=== PATIENT | female | born 1975 | race Caucasian/White ===

== ENCOUNTER 2021-10-27 18:59 | Emergency (ER) | payer SELFPAY ==
[~2021-10-27] VITALS: Ht 152.4 cm; Wt 99.0 kg
[2021-10-27] MEDS ORDERED: BUSPIRONE HCL30 MG PO ×2 (19:33→23:59)
[2021-10-27] MEDS ORDERED: ADDERALL 20 MG20 MG PO (19:34)
[2021-10-27] MEDS ORDERED: HYDROCODON-ACE1 EA10 PO (23:59)
[2021-10-27] MEDS ORDERED: FLUCONAZOLE150 MG PO (23:59)
[2021-10-27] MEDS ORDERED: METRONIDAZOLE500 MG PO (23:59)
[2021-10-27] MEDS ORDERED: DOXYCYCLINE HY100 MG PO (23:59)
== END 2021-10-28 00:32 | disposition home or self-care (01) ==
LOC: ED 18:59
DX: N73.0 Acute parametritis and pelvic cellulitis (principal); Z88.0 Allergy status to penicillin; Z91.018 Allergy to other foods; Z79.899 Other long term (current) drug therapy
CPT/HCPCS: 74177; 80053; 81001; 83690; 84703; 85025; 87210; 99284-25; J0696

== ENCOUNTER 2021-10-31 18:04 | Emergency (ER) | payer SELFPAY ==
[~2021-10-31] VITALS: Ht 152.4 cm; Wt 98.9 kg
[~2021-10-31 18:04] MED LIST: ADDERALL 20 MG20 MG PO; BUSPIRONE HCL30 MG PO; DOXYCYCLINE HY100 MG PO; FLUCONAZOLE150 MG PO; HYDROCODON-ACE1 EA10 PO; METRONIDAZOLE500 MG PO
--- OUTSIDE RECORDS SUMMARY | 2021-10-31 18:08 | XMS ---
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 - 2 Visits in 30 Days - Group Notification CARE PROVIDERS There are no care providers on record at this time. Alexis has no Care Guidelines for this patient. Care History Medical/Surgical 10/28/2021 [facility] - CHW RECEIVED CASE MANAGEMENT CONSULT- HELP PATIENT WITH FINDING A PRIMARY CARE PHYSICIAN. - CHW CALLED PATIENT [phone] LEFT A VOICEMAIL - PATIENT DOES NOT CURRENTLY HAVE HEALTH INSURANCE. 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 - NO PCP LETTER SENT WITH CLINICS LISTED TO ESTABLISH WITH. E.Susan. VISIT COUNT (12 MO.) 2 [facility] TOTAL 2 NOTE: Visits indicate total known visits. 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
--- NOTE | 2021-11-02 16:17 | EKG ---
[facility] [address] [place], [place] [address] Signed Normal sinus rhythm Normal ECG No previous ECGs available Confirmed by CRISTÓBAL SHANNON MD ([id number]) on 11/02/2021 4:17:26 PM Electronically Signed By: CRISTÓBAL SHANNON MD 11/02/21 1617 PATIENT NAME: MIKE JOSEPH Electrocardiogram DATE OF : 77 PHYSICIAN: CRISTÓBAL SHANNON MD REPORT #: [id number] REPORT IS CONFIDENTIAL AND NOT TO BE RELEASED WITHOUT AUTHORIZATION
== END 2021-10-31 18:37 | disposition left against medical advice (07) ==
LOC: ED 18:04
DX: Z53.21 Procedure and treatment not carried out due to patient leaving prior to being seen by health care provider (principal)
CPT/HCPCS: 93005; 93010

== ENCOUNTER 2023-01-13 20:19 | Emergency (ER) | payer BC ==
[~2023-01-13] VITALS: Ht 152.4 cm; Wt 102.1 kg
[~2023-01-13 20:19] MED LIST changes: +CYCLOBENZAPRINE10 MG PO; +ONDANSETRON ODT8 MG PO
--- OUTSIDE RECORDS SUMMARY | 2023-01-13 20:27 | XMS ---
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 10/31/2021 18:05 - Other Details: PATIENT LWBS Elopement at [facility] 10/31/2021 18:05 - Other Details: PATIENT LWBS CRITERIA MET - Group Notification CARE PROVIDERS There are no care providers on record at this time. Alexis has no Care Guidelines for this patient. Care History Medical/Surgical 10/28/2021 [facility] - CHW RECEIVED CASE MANAGEMENT CONSULT- HELP PATIENT WITH FINDING A PRIMARY CARE PHYSICIAN. - CHW CALLED PATIENT [phone] LEFT A VOICEMAIL - PATIENT DOES NOT CURRENTLY HAVE HEALTH INSURANCE. DOES SHOW [employer] EMPLOYMENT. - NO PCP LETTER SENT WITH CLINICS LISTED TO ESTABLISH WITH. E.D. VISIT COUNT (12 MO.) 2 [facility]. TOTAL 2 NOTE: Visits indicate total known visits. ED/UCC VISIT TRACKING (12 MO.) 01/13/2023 20:20 [facility] [place] TYPE: Emergency COMPLAINT: - SOB,CLAMMY 08/15/2022 22:36 [facility] [place] TYPE: Emergency COMPLAINT: - N/V AND FEVER DIZZY DIAGNOSES: - Nausea with vomiting, unspecified - Contact with and (suspected) exposure to COVID-19 - Allergy to other foods - Allergy status to penicillin - Viral intestinal infection, unspecified INPATIENT VISIT TRACKING (12 MO.) No inpatient visits to display in this time frame [id number]
--- NOTE | 2023-01-15 13:29 | EKG ---
[facility] [address] [place] [address] Signed Sinus tachycardia Otherwise normal ECG When compared with ECG of 31-OCT-2021 18:16, Non-specific change in ST segment in Inferior leads ST now depressed in Lateral leads Nonspecific T wave abnormality now evident in Inferior leads Confirmed by CRISTÓBAL SHANNON MD ([id number]) on 01/15/2023 1:29:08 PM Electronically Signed By: CRISTÓBAL SHANNON MD 01/15/23 1329 PATIENT NAME: AUSTIN JOSEPHNY LUNAVIKA Electrocardiogram DATE OF : 77 PHYSICIAN: CRISTÓBAL SHANNON MD REPORT #: [id number] REPORT IS CONFIDENTIAL AND NOT TO BE RELEASED WITHOUT AUTHORIZATION
== END 2023-01-13 23:20 | disposition home or self-care (01) ==
LOC: ED 20:19
DX: L02.212 Cutaneous abscess of back [any part, except buttock and flank] (principal); Z88.2 Allergy status to sulfonamides; Z91.018 Allergy to other foods; Z88.0 Allergy status to penicillin; Z79.899 Other long term (current) drug therapy; Z20.822 Contact with and (suspected) exposure to COVID-19
CPT/HCPCS: 36415; 51701; 71045; 80053; 81001; 83605; 85025; 85610; 85730; 87502; 93005; 93010; 99283-25; C9803; U0003

== ENCOUNTER 2023-04-29 01:39 | Emergency (ER) | payer BC ==
[~2023-04-29] VITALS: Ht 152.4 cm; Wt 106.6 kg
--- OUTSIDE RECORDS SUMMARY | 2023-04-29 01:46 | XMS ---
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 Care History Medical/Surgical 10/28/2021 [facility] - [facility] RECEIVED CASE MANAGEMENT CONSULT- HELP PATIENT WITH FINDING A PRIMARY CARE PHYSICIAN. - CHW CALLED PATIENT [phone] LEFT A VOICEMAIL - PATIENT DOES NOT CURRENTLY HAVE HEALTH INSURANCE. 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 - NO PCP LETTER SENT WITH CLINICS LISTED TO ESTABLISH WITH. E.D. VISIT COUNT (12 MO.) 3 [facility] TOTAL 3 NOTE: Visits indicate total known visits. ED/UCC VISIT TRACKING (12 MO.) 04/29/2023 01:[address] [facility] [place] TYPE: Emergency COMPLAINT: - LT KNEE PAIN 01/13/2023 20:20 [facility] [place] TYPE: Emergency COMPLAINT: - SOB,CLAMMY DIAGNOSES: - Allergy status to penicillin - Allergy status to sulfonamides - Allergy to other foods - Contact with and (suspected) exposure to COVID-19 - Cutaneous abscess of back [any part, except buttock] - Other salvage determiner (current) drug therapy - Shortness of breath 08/15/2022 22:[address] [facility] [place] TYPE: Emergency COMPLAINT: - N/V AND FEVER DIZZY DIAGNOSES: - Allergy status to penicillin - Allergy to other foods - Contact with and (suspected) exposure to COVID-19 - Nausea with vomiting, unspecified - Viral intestinal infection, unspecified INPATIENT VISIT TRACKING (12 MO.) No inpatient visits to display in this time frame [id number]
[2023-04-29] MEDS ORDERED: TRAZODONE HCL50 MG PO (01:56)
[2023-04-29] MEDS ORDERED: LOSARTAN-HCTZ1 EAC2 PO (01:56)
[2023-04-29 02:30] VITALS: BP 130/85
== END 2023-04-29 02:30 | disposition home or self-care (01) ==
LOC: ED 01:39
DX: S83.92XA Sprain of unspecified site of left knee, initial encounter (principal); X50.1XXA Overexertion from prolonged static or awkward postures, initial encounter; Z88.0 Allergy status to penicillin; Z88.2 Allergy status to sulfonamides; Z91.018 Allergy to other foods; Z79.899 Other long term (current) drug therapy
CPT/HCPCS: 73560; 99283-25

== ENCOUNTER 2024-03-09 15:33 | Emergency (ER) | payer OTHER ==
[~2024-03-09] VITALS: Ht 152.4 cm; Wt 114.7 kg
[~2024-03-09 15:33] MED LIST changes: +LOSARTAN-HCTZ1 EAC2 PO; +PREDNISONE20 MG PO; +TRAZODONE HCL50 MG PO
[2024-03-09 16:18] VITALS: BP 145/77
[2024-03-09] MEDS ORDERED: LACTULOSE 10 GM/15 ML ML PR ONE (16:30)
--- NOTE | 2024-03-10 05:12 | EKG ---
[facility] [address] [facility] [facility] [place] [address] Signed Normal sinus rhythm Normal ECG When compared with ECG of 27-FEB-2024 01:19, No significant change was found Confirmed by Forest Valdez ([id number]) on 03/10/2024 5:12:39 AM Electronically Signed By: FOREST VALDEZ MD 03/10/24 0512 PATIENT NAME: MIKE JOSEPH NYDIAAYESHA Electrocardiogram DATE OF : 77 PHYSICIAN: FOREST VALDEZ MD REPORT #: [id number] REPORT IS CONFIDENTIAL AND NOT TO BE RELEASED WITHOUT AUTHORIZATION
== END 2024-03-09 16:27 | disposition left against medical advice (07) ==
LOC: ED 15:33
DX: R06.02 Shortness of breath (principal); Z53.29 Procedure and treatment not carried out because of patient's decision for other reasons; R07.89 Other chest pain; R49.0 Dysphonia; I10 Essential (primary) hypertension; I25.2 Old myocardial infarction; F90.9 Attention-deficit hyperactivity disorder, unspecified type; F41.9 Anxiety disorder, unspecified; Z87.828 Personal history of other (healed) physical injury and trauma; Z88.0 Allergy status to penicillin; Z91.018 Allergy to other foods; Z88.2 Allergy status to sulfonamides; Z79.899 Other long term (current) drug therapy
CPT/HCPCS: 80053; 82803; 83880; 84484; 85025; 93005; 93010; 99285-25

== ENCOUNTER 2024-04-19 09:27 | Emergency (ER) | payer OTHER ==
[~2024-04-19] VITALS: Ht 152.4 cm; Wt 105.0 kg
[2024-04-19] MEDS ORDERED: EPINEPHRINE 2.25% 0.5 ML AMP ONE ×2 (09:33→13:09)
[2024-04-19] MEDS ORDERED: AMLODIPINE BESYL5 MG PO (09:39)
[2024-04-19] MEDS ORDERED: predniSONE 20 MG TAB PO ONE (10:00)
[2024-04-19] MEDS ORDERED: EPINEPHRINE 2.25% 0.5 ML AMP NEB ONE ×2 (10:00→19:45)
[2024-04-19] MEDS ORDERED: DEXAMETHASONE SOD PHOS 10 MG/ML VIAL IV ONE (13:15)
[2024-04-19] MEDS ORDERED: LORazepam 2 MG/ML VIAL IV PRN (13:15)
[2024-04-19 13:27] LABS: BASOPHILS 0.4 % (0-2); EOSINOPHILS 0.3 % (0-6); HEMATOCRIT 42.1 % (35.0-50.0); HEMOGLOBIN 13.6 g/dL (12.0-18.0); LYMPHOCYTES 17.3 % (24-44); MCH 27.4 (27-36); MCHC 32.2 g/dl (30-36); MONOCYTES 2.6 % (0-12); NEUTROPHILS 79.4 % (39-80); PLATELET COUNT 332 K/uL (140-440); RBC 4.95 M/ul (4.3-5.7); RDW 16.3 (10.5-15.0)
[2024-04-19] MEDS ORDERED: SODIUM CHLORIDE 0.9% 1,000 ML IV ONE (13:30)
[2024-04-19 13:42] LABS: ALBUMIN 3.4 g/dL (3.4-5.0); ALBUMIN/GLOBULIN RATIO 0.79 (1.1-2.4); ANION GAP 12.7 (7-21); BILIRUBIN, TOTAL 0.2 ng/dL (0.2-1.0); CALCIUM 8.9 mg/dL (8.5-10.1); CREATININE, SERUM 0.7 mg/dL (0.55-1.02); POTASSIUM 3.7 mmol/L (3.5-5.1); PROTEIN, TOTAL 7.7 g/dL (6.4-8.2)
[2024-04-19] MEDS ORDERED: CEFTRIAXONE/SODIUM CHLORIDE 2 GM/100 ML PIGGYBACK IV ONE (19:00)
[2024-04-19 21:18] LABS: BILIRUBIN, URINE NEGATIVE (negative); BLOOD/HGB, URINE TRACE-L (Negative); KETONE, URINE TRACE (Negative); LEUK ESTERASE, URINE NEGATIVE (negative); NITRITE, URINE NEGATIVE (negative)
[2024-04-19 21:23] LABS: EPITHELIAL CELLS, URINE SQUAMOUS 2+ /lpf (0-1+)
[2024-04-19 21:24] LABS: BACTERIA, URINE RARE /hpf (negative); CASTS, URINE NONE SEEN \\lpf; CRYSTALS, URINE NONE SEEN (0-1+); REFLEX CULTURE, URINE No (No); WHITE BLOOD CELLS, URINE 0-1 /HPF (0-5)
[2024-04-19 23:14] LABS: BASE EXCESS, BLOOD GAS -1.8 mmol/L (-2-2); HCO3, BLOOD GAS 21.5 mmol/L (22-26); PCO2, BLOOD GAS 31.2 mmHg (35-45); PH, BLOOD GAS 7.45 (7.35-7.45); PO2, BLOOD GAS 65 mmHg (80-100); TOTAL CO2, BLOOD GAS 22.5
[2024-04-19 23:15] LABS: OXYGEN RECEIVED, BLOOD GAS ROOM AIR
[2024-04-19] MEDS ORDERED: LACTATED RINGER'S 1,000 ML IV ONE (23:45)
[2024-04-20 01:33] VITALS: BP 128/78
[2024-04-20] MEDS ORDERED: EPINEPHRINE 2.25% 0.5 ML AMP NEB ONE (02:00)
== END 2024-04-20 02:12 | disposition short-term general hospital (02) ==
LOC: ED 09:27
PROVIDERS: Emergency Medicine; Internal Medicine
DX: R06.1 Stridor (principal); J45.909 Unspecified asthma, uncomplicated; Z88.0 Allergy status to penicillin; Z88.2 Allergy status to sulfonamides; Z91.018 Allergy to other foods; Z79.899 Other long term (current) drug therapy
CPT/HCPCS: 36415; 36600; 70360; 70491; 71045; 80053; 81001; 82803; 85025; 87070; 94640; 96366; 96367; 96375; 96376; 99285-25; A9270; J0696; J1100; J2060; J7030; J7121; J7512; Q9967

== ENCOUNTER 2024-06-07 21:33 | Emergency (ER) | payer OTHER ==
[~2024-06-07] VITALS: Ht 152.4 cm; Wt 95.0 kg
[~2024-06-07 21:33] MED LIST changes: +AMLODIPINE BESYL5 MG PO
[2024-06-07] MEDS ORDERED: VENTOLIN HFA18 GM INH (21:42)
[2024-06-07] MEDS ORDERED: VITAMIN D21250 MCG PO (21:43)
[2024-06-07] MEDS ORDERED: HYDROXYZINE HCL25 MG PO (21:43)
[2024-06-07] MEDS ORDERED: TIOTROPIUM BRO18 MCG INH (21:43)
[2024-06-07] MEDS ORDERED: methylPREDNISolone SOD SUCC 125 MG/2 ML VIAL IV ONE (21:45)
[2024-06-07] MEDS ORDERED: ALBUTEROL/IPRATROPIUM 3 ML NEB INH ONE (21:45)
[2024-06-07 21:48] LABS: PH, VENOUS 7.448 (7.31-7.41)
[2024-06-07 21:50] LABS: BASOPHILS 0.7 % (0-2); EOSINOPHILS 1.4 % (0-6); HEMATOCRIT 41.2 % (35.0-50.0); HEMOGLOBIN 13.7 g/dL (12.0-18.0); MCH 28.2 (27-36); MCHC 33.2 g/dl (30-36); NEUTROPHILS 58.9 % (39-80); PLATELET COUNT 337 K/uL (140-440); RBC 4.85 M/ul (4.3-5.7); RDW 15.8 (10.5-15.0)
[2024-06-07 22:14] LABS: ALBUMIN 3.3 g/dL (3.4-5.0); ALBUMIN/GLOBULIN RATIO 0.85 (1.1-2.4); BILIRUBIN, TOTAL 0.2 ng/dL (0.2-1.0); BUN/CREATININE RATIO 20.83 (6.0-28.6); CALCIUM 9.3 mg/dL (8.5-10.1); CREATININE, SERUM 0.72 mg/dL (0.55-1.02); PROTEIN, TOTAL 7.2 g/dL (6.4-8.2)
[2024-06-07 22:44] LABS: INFLUENZA B NAA NEGATIVE (NEGATIVE); RESPIRATORY SYNCYTIAL VIR NAA NEGATIVE (NEGATIVE)
[2024-06-07] MEDS ORDERED: METOPROLOL TARTRATE 5 MG/5 ML VIAL IV ONE (22:45)
[2024-06-07] MEDS ORDERED: ENALAPRILAT DIHYDRATE 1.25 MG/ML VIAL IV ONE (23:15)
[2024-06-08] MEDS ORDERED: methylPREDNISolone 4 MG HOME.PACK PO ONE (00:30)
[2024-06-08] MEDS ORDERED: AZITHROMYCIN 250 MG HOME.PACK PO ONE (00:30)
[2024-06-08] MEDS ORDERED: LORazepam 1 MG HOME.PACK PO ONE (00:30)
[2024-06-08 00:45] VITALS: BP 142/100
--- NOTE | 2024-06-08 19:31 | EKG ---
[facility] [address] [facility] [place] [address] Signed Sinus tachycardia Cannot rule out Inferior infarct , age undetermined Cannot rule out Anterior infarct , age undetermined Abnormal ECG When compared with ECG of 09-MAR-2024 15:59, Minimal criteria for Anterior infarct are now present No significant change was found Confirmed by ELICEO ROBERTS MD ([id number]) on 06/08/2024 7:31:24 PM Electronically Signed By: ELICEO ROBERTS 06/08/24 193 PATIENT NAME: MIKE JOSEPH Electrocardiogram DATE OF : [birth year] PHYSICIAN: ELICEO ROBERTS REPORT #: [id number] REPORT IS CONFIDENTIAL AND NOT TO BE RELEASED WITHOUT AUTHORIZATION
== END 2024-06-08 00:45 | disposition home or self-care (01) ==
LOC: ED 21:33
PROVIDERS: Family Medicine
DX: J38.7 Other diseases of larynx (principal); Z79.899 Other long term (current) drug therapy; Z88.2 Allergy status to sulfonamides; Z91.018 Allergy to other foods; Z88.0 Allergy status to penicillin
CPT/HCPCS: 36415; 70491; 71250; 80053; 82803; 83880; 84484; 85025; 85379; 87502; 93005; 93010; 94640; 96375; 99285-25; J2919; Q9967; U0002

== ENCOUNTER 2024-12-26 11:26 | Emergency (ER) | payer OTHER ==
[~2024-12-26] VITALS: Ht 152.4 cm; Wt 96.2 kg
[~2024-12-26 11:26] MED LIST changes: +HYDROXYZINE HCL25 MG PO; +TIOTROPIUM BRO18 MCG INH; +VENTOLIN HFA18 GM INH; +VITAMIN D21250 MCG PO
[2024-12-26 12:06] LABS: BASOPHILS 1.4 % (0-2); EOSINOPHILS 1.4 % (0-6); HEMATOCRIT 45.4 % (35.0-50.0); HEMOGLOBIN 14.8 g/dL (12.0-18.0); MCH 27.6 (27-36); MCHC 32.7 g/dl (30-36); MCV 84.3 fl (81-99); MONOCYTES 7.5 % (0-12); NEUTROPHILS 60.7 % (39-80); PLATELET COUNT 304 K/uL (140-440); RBC 5.38 M/ul (4.3-5.7); RDW 16.2 (10.5-15.0)
[2024-12-26 12:26] LABS: ALBUMIN 3.4 g/dL (3.4-5.0); ALBUMIN/GLOBULIN RATIO 0.85 (1.1-2.4); ANION GAP 13.4 (7-21); BILIRUBIN, TOTAL 0.3 ng/dL (0.2-1.0); BUN/CREATININE RATIO 15.71 (6.0-28.6); CREATININE, SERUM 0.7 mg/dL (0.55-1.02); POTASSIUM 3.4 mmol/L (3.5-5.1); PROTEIN, TOTAL 7.4 g/dL (6.4-8.2)
[2024-12-26 13:11] VITALS: BP 165/108
--- NOTE | 2024-12-28 17:07 | EKG ---
[facility] [address] [facility] [facility] [place] [address] Signed Sinus tachycardia Possible Anterior infarct (cited on or before 07-JUN-2024) Abnormal ECG When compared with ECG of 07-JUN-2024 21:55, Minimal criteria for Inferior infarct are no longer present Confirmed by Nato Ruffin DO ([id number]) on 12/28/2024 5:07:02 PM Electronically Signed By: NATO RUFFIN DO 12/28/24 1707 PATIENT NAME: AUSTIN JOSEPHNY STAFFORDAYESHA Electrocardiogram DATE OF : [birth year] PHYSICIAN: NATO RUFFIN DO REPORT #: [id number] REPORT IS CONFIDENTIAL AND NOT TO BE RELEASED WITHOUT AUTHORIZATION
--- NOTE | 2024-12-31 19:31 | EKG ---
[facility] [address] [facility] [place], [place] [address] Signed Sinus tachycardia Cannot rule out Anterior infarct (cited on or before 07-JUN-2024) Abnormal ECG When compared with ECG of 26-DEC-2024 11:44, No significant change was found Confirmed by Branden Pavon MD ([id number]) on 12/31/2024 7:31:37 PM Electronically Signed By: BRANDEN PAVON MD 12/31/241930 PATIENT NAME: AUSTIN JOSEPHNY STAFFORDAYESHA Electrocardiogram DATE OF : [birth year] PHYSICIAN: BRANDEN PAVON MD REPORT #: [id number] REPORT IS CONFIDENTIAL AND NOT TO BE RELEASED WITHOUT AUTHORIZATION
== END 2024-12-26 13:12 | disposition home or self-care (01) ==
LOC: ED 11:26
PROVIDERS: Internal Medicine
DX: R03.0 Elevated blood-pressure reading, without diagnosis of hypertension (principal); R00.0 Tachycardia, unspecified; I25.10 Atherosclerotic heart disease of native coronary artery without angina pectoris; I25.2 Old myocardial infarction; Z88.0 Allergy status to penicillin; Z88.2 Allergy status to sulfonamides; Z91.018 Allergy to other foods; Z79.899 Other long term (current) drug therapy
CPT/HCPCS: 36415; 80053; 83735; 84484; 85025; 93005; 93010; 99285

== ENCOUNTER 2024-12-30 19:25 | Emergency (ER) | payer OTHER ==
[~2024-12-30] VITALS: Ht 152.4 cm; Wt 96.2 kg
[2024-12-30 20:09] LABS: BASOPHILS 0.7 % (0-2); EOSINOPHILS 1.7 % (0-6); HEMATOCRIT 46.8 % (35.0-50.0); HEMOGLOBIN 15.6 g/dL (12.0-18.0); LYMPHOCYTES 24.3 % (24-44); MCH 28.1 (27-36); MCHC 33.3 g/dl (30-36); MCV 84.4 fl (81-99); MONOCYTES 5.5 % (0-12); NEUTROPHILS 67.8 % (39-80); PLATELET COUNT 311 K/uL (140-440); RBC 5.54 M/ul (4.3-5.7)
[2024-12-30 20:20] LABS: INR 0.95 (0.80-1.30); PROTIME 12.6 Sec (11.2-14.2)
[2024-12-30 20:22] LABS: PARTIAL THROMBOPLASTIN TIME 29.2 Sec (22.9-41.3)
[2024-12-30 20:32] LABS: ALBUMIN 3.2 g/dL (3.4-5.0); ALBUMIN/GLOBULIN RATIO 0.76 (1.1-2.4); ANION GAP 15.5 (7-21); BILIRUBIN, TOTAL 0.4 mg/dL (0.2-1.0); BUN/CREATININE RATIO 17.94 (6.0-28.6); CALCIUM 9.7 mg/dL (8.5-10.1); CREATININE, SERUM 0.78 mg/dL (0.55-1.02); POTASSIUM 4.5 mmol/L (3.5-5.1); PROTEIN, TOTAL 7.4 g/dL (6.4-8.2)
[2024-12-30 22:35] VITALS: BP 149/88
== END 2024-12-30 22:37 | disposition home or self-care (01) ==
LOC: ED 19:25
PROVIDERS: Family Medicine
DX: R07.89 Other chest pain (principal); Z88.0 Allergy status to penicillin; Z88.2 Allergy status to sulfonamides; Z91.018 Allergy to other foods; Z79.899 Other long term (current) drug therapy
CPT/HCPCS: 36415; 71045; 80053; 83735; 83880; 84484; 85025; 85379; 85610; 85730; 93005; 93010; 99285-25

== ENCOUNTER 2025-03-19 21:37 | Emergency (ER) | payer OTHER ==
[~2025-03-19] VITALS: Ht 152.4 cm; Wt 89.7 kg
[2025-03-19] MEDS ORDERED: PERCOCET 5-3251 EACH PO (22:45)
[2025-03-19] MEDS ORDERED: OXYCODONE/APAP 5/325 TAB PO ONE (22:45)
[2025-03-19 23:22] VITALS: BP 163/94
== END 2025-03-19 23:24 | disposition home or self-care (01) ==
LOC: ED 21:37
DX: S80.02XA Contusion of left knee, initial encounter (principal); Z88.1 Allergy status to other antibiotic agents; Z88.2 Allergy status to sulfonamides; Z79.899 Other long term (current) drug therapy; W01.0XXA Fall on same level from slipping, tripping and stumbling without subsequent striking against object, initial encounter
CPT/HCPCS: 73560; 99283

== ENCOUNTER 2025-05-23 04:20 | Emergency (ER) | payer OTHER ==
[~2025-05-23] VITALS: Ht 152.4 cm; Wt 91.2 kg
[~2025-05-23 04:20] MED LIST changes: +PERCOCET 5-3251 EACH PO
[2025-05-23] MEDS ORDERED: KETOROLAC TROMETHAMINE 30 MG/ML VIAL IV ONE (04:45)
[2025-05-23 04:48] LABS: BASOPHILS 0.5 % (0.1-1.2); EOSINOPHILS 2.2 % (0.7-5.8); LYMPHOCYTES 39.6 % (19.3-51.7); MCH 27.6 PG (25.6-32.2); MCHC 33.0 g/dL (32.2-35.5); MCV 83.7 fL (79.4-94.8); MONOCYTES 9.7 % (4.7-12.5); NEUTROPHILS 47.7 % (34.0-71.1); RBC 4.85 M/uL (3.93-5.22)
[2025-05-23 04:58] LABS: BLOOD/HGB, URINE NEGATIVE (Negative); KETONE, URINE NEGATIVE (Negative); LEUK ESTERASE, URINE NEGATIVE (negative); NITRITE, URINE NEGATIVE (negative)
[2025-05-23] MEDS ORDERED: LACTATED RINGER'S 1,000 ML IV ONE (05:00)
[2025-05-23 05:13] LABS: AMPHETAMINES, URINE POSITIVE (NEGATIVE); BARBITURATES, URINE NEGATIVE (NEGATIVE); BENZODIAZEPINE, URINE NEGATIVE (NEGATIVE); CANNABINOID, URINE NEGATIVE (NEGATIVE); COCAINE, URINE NEGATIVE (NEGATIVE); ECSTASY, URINE POSITIVE (NEGATIVE); FENTANYL, URINE NEGATIVE (NEGATIVE); METHADONE, URINE NEGATIVE (NEGATIVE); OPIATES, URINE NEGATIVE (NEGATIVE); OXYCODONE, URINE NEGATIVE (NEGATIVE); PHENCYCLIDINE, URINE NEGATIVE (NEGATIVE)
[2025-05-23 05:16] LABS: ALT (SGPT) 27.0 U/L (14-59); AST (SGOT) 16.0 U/L (15-37); GLOMERULAR FILTRATION RATE,EST 84.0 mL/min (>60); PROTEIN, TOTAL 7.0 g/dL (6.4-8.2); UREA NITROGEN 15.0 mg/dL (7-18)
[2025-05-23 05:50] LABS: ERYTHROCYTE SEDIMENTATION RATE 21
[2025-05-23 06:18] VITALS: BP 175/106
== END 2025-05-23 06:18 | disposition home or self-care (01) ==
LOC: ED 04:20
PROVIDERS: Internal Medicine
DX: M17.12 Unilateral primary osteoarthritis, left knee (principal); Z88.1 Allergy status to other antibiotic agents; Z91.018 Allergy to other foods; Z88.2 Allergy status to sulfonamides
CPT/HCPCS: 36415; 73700; 80053; 80307; 81003; 84550; 84703; 85025; 85379; 85651; 86140; 96374; 99284-25; J1885; J7121

== ENCOUNTER 2025-06-05 20:42 | Emergency (ER) | payer OTHER ==
[~2025-06-05] VITALS: Ht 152.4 cm; Wt 91.2 kg
[2025-06-05] MEDS ORDERED: METFORMIN HCL500 M1 PO (20:51)
[2025-06-05] MEDS ORDERED: CLEOCIN HCL300 MG PO (21:23)
[2025-06-05] MEDS ORDERED: HYDROCODONE BIT/ACETAMINOPHEN 5/325 MG 1 TAB HOME.PACK PO ONE (21:30)
[2025-06-05 21:39] VITALS: BP 180/110
== END 2025-06-05 21:40 | disposition home or self-care (01) ==
LOC: ED 20:42
DX: K08.89 Other specified disorders of teeth and supporting structures (principal); Z79.84 Long term (current) use of oral hypoglycemic drugs; Z79.899 Other long term (current) drug therapy; Z88.0 Allergy status to penicillin; Z91.018 Allergy to other foods; Z88.2 Allergy status to sulfonamides
CPT/HCPCS: 99282; A9270

== ENCOUNTER 2025-08-20 03:02 | Emergency (ER) | payer OTHER ==
[~2025-08-20] VITALS: Ht 152.4 cm; Wt 91.2 kg
[~2025-08-20 03:02] MED LIST changes: +CLEOCIN HCL300 MG PO; +METFORMIN HCL500 M1 PO
[2025-08-20] MEDS ORDERED: TRAMADOL HCL 50 MG HOME.PACK PO ONE (03:15)
[2025-08-20] MEDS ORDERED: CELEBREX200 MG PO (03:15)
[2025-08-20] MEDS ORDERED: TRAMADOL HCL 50 MG TAB PO ONE (03:15)
[2025-08-20] MEDS ORDERED: KETOROLAC TROMETHAMINE 60 MG/2 ML VIAL IM ONE (03:15)
[2025-08-20 03:45] VITALS: BP 178/98
== END 2025-08-20 03:45 | disposition home or self-care (01) ==
LOC: ED 03:02
DX: K02.9 Dental caries, unspecified (principal); I25.2 Old myocardial infarction; Z79.84 Long term (current) use of oral hypoglycemic drugs; Z79.899 Other long term (current) drug therapy; Z88.0 Allergy status to penicillin; Z88.2 Allergy status to sulfonamides; Z91.018 Allergy to other foods
CPT/HCPCS: 96372; 99282; A9270; J1885